=== PATIENT | male | born 1970 | race Caucasian/White ===

== ENCOUNTER 2018-06-07 14:31 | Emergency (ER) | payer BC ==
[~2018-06-07] VITALS: Ht 175.3 cm; Wt 77.3 kg
[~2018-06-07 14:31] MED LIST: CYCL10TA3 PO; NO HOME MEDICATIONS; PROZ10CA7 PO
[2018-06-07] MEDS ORDERED: CLEO300C2 PO (14:56)
[2018-06-07 15:20] LABS: BASO % 0.4 % (0.0-1.0); EOS # 0.1 10^3/uL (0.0-0.50); HEMATOCRIT 42.9 % (42.0-52.0); LYMPH # 2.3 10^3/uL (1.5-4.5); LYMPH % 23.2 % (24.0-44.0); MEAN CORPUSCULAR HEMOGLOBIN 33.3 pg (27.0-33.0); MEAN CORPUSCULAR VOLUME 95.3 fl (80.0-96.0); MONO # 0.7 10^3/uL (0.0-0.8); MONO % 6.4 % (0.0-5.0); NEUTROPHILS # 6.9 10^3/uL (1.8-7.7); NEUTROPHILS % 68.7 % (36.0-66.0); PLATELET COUNT, AUTOMATED 245 10^3/uL (150-450); WHITE BLOOD COUNT 10.1 10^3/uL (4.0-10.0)
[2018-06-07 15:39] LABS: BLOOD UREA NITROGEN 12 MG/DL (7-18); C REACTIVE PROTEIN QUANTITATIV < 0.30 MG/DL (0.00-0.30); CALCIUM LEVEL 8.8 MG/DL (8.5-10.1); CARBON DIOXIDE LEVEL 27 MEQ/L (21-32); CHLORIDE LEVEL 108 MEQ/L (98-107); GLOMERULAR FILTRATION RATE > 60.0 (>60); GLUCOSE, FASTING 87 MG/DL (70-100); POTASSIUM SERUM 4.1 MEQ/L (3.5-5.1); SODIUM LEVEL 140 MEQ/L (136-145)
[2018-06-07 16:01] LABS: ERYTHROCYTE SEDIMENTATION RATE 3 mm/hr (0-15)
--- NOTE | 2018-06-07 18:26 | REPVR ---
EXAM: CT Left Upper Extremity Without Contrast, Hand EXAM DATE/TIME: 06/07/2018 5:39 PM CLINICAL HISTORY: 48 years old, male; Injury or trauma; Injury history: Splinter injury left thumb; Initial encounter; Puncture; Hand; Additional info: Splinter injury left thumb, ? fb still in hand TECHNIQUE: CT of the Left upper extremity without intravenous contrast was performed. Exam focused on the hand. All CT scans at this facility use at least one of these dose optimization techniques: automated exposure control; mA and/or kV adjustment per patient size (includes targeted exams where dose is matched to clinical indication); or iterative reconstruction. Coronal and sagittal reformatted images were created and reviewed. COMPARISON: CR Hand, complete 06/12/2013 10:20 AM FINDINGS: There is no evidence of bony abnormality. There is no evidence of opaque foreign body within the soft tissues in the region of the thumb. There is soft tissue swelling subcutaneous region left thumb. IMPRESSION: Soft tissue swelling but no opaque foreign body identified. Electronically signed by: Con Noble On 06/07/2018 18:26:14 PM
[2018-06-07] MEDS ORDERED: CIPROFLOXACIN 500 MG TAB PO ONE (19:15)
[2018-06-07] MEDS ORDERED: CIPR-249 PO (19:27)
[2018-06-07 19:47] VITALS: BP 140/93
== END 2018-06-07 19:49 | disposition home or self-care (01) ==
LOC: M ED 14:31
DX: L03.114 Cellulitis of left upper limb (principal); F41.9 Anxiety disorder, unspecified; F32.9 Major depressive disorder, single episode, unspecified; Z79.899 Other long term (current) drug therapy

== ENCOUNTER 2018-09-10 08:31 | Day surgery (SDC) | payer BC ==
[~2018-09-10] VITALS: Ht 175.3 cm; Wt 81.4 kg
[~2018-09-10 08:31] MED LIST changes: +CIPR-249 PO; +CLEO300C2 PO; +IBUP-1022 PO; +LR 1,000 ML IV ONE
[2018-09-10] MEDS ORDERED: ONDANSETRON 4MG/2ML VIAL (J2405) As Ordered ONE (08:37)
[2018-09-10] MEDS ORDERED: PROPOFOL 500 MG/50 ML VIAL As Ordered ONE (08:37)
[2018-09-10] MEDS ORDERED: LIDOCAINE 2% INJ 100 MG/5 ML SDV (FOR ANES.) As Ordered ONE (08:37)
[2018-09-10] MEDS ORDERED: dexameTHASONE 4 MG/ML 1ML VIAL (J1100) As Ordered ONE (08:37)
[2018-09-10] MEDS ORDERED: fentaNYL 100 MCG/2 ML INJECTION (J3010) As Ordered ONE (08:38)
[2018-09-10] MEDS ORDERED: MIDAZOLAM INJ 2 MG/2 ML VIAL (J2250) As Ordered ONE (08:38)
[2018-09-10] MEDS ORDERED: BUPIVACAINE/EPIN 0.25% 30 ML VIAL As Ordered ONE (10:35)
[2018-09-10 12:25] VITALS: BP 116/85
[2018-09-10] MEDS ORDERED: CelecoXIB 400 MG CAP PO ONE (12:30)
[2018-09-10] MEDS ORDERED: LR 1,000 ML IV SCH ×2 (12:30)
[2018-09-10] MEDS ORDERED: METOCLOPRAMIDE INJ 10MG/2ML VIAL (J2765) IV PRN (12:30)
[2018-09-10] MEDS ORDERED: ONDANSETRON 4MG/2ML VIAL (J2405) IV PRN ×2 (12:30)
[2018-09-10] MEDS ORDERED: fentaNYL 100 MCG/2 ML INJECTION (J3010) IV PRN (12:30)
[2018-09-10] MEDS ORDERED: PERCOCET 5MG/325MG TAB PO PRN ×2 (12:30)
--- NOTE | 2018-09-10 14:22 | RO ---
DATE OF PROCEDURE: 09/10/2018 PREOPERATIVE DIAGNOSIS: Left thumb foreign body. POSTOPERATIVE DIAGNOSIS: Left thumb foreign body. PROCEDURE: Irrigation and debridement of left thumb. SURGEON: Dr. Fidencio Bill A P MANAGER: ANESTHESIA: Local MAC. ESTIMATED BLOOD LOSS: Less than 10 mL, replaced COMPLICATIONS: None. INDICATION: He had a treated lumbar splinter in the left thumb. MRI suggested that he had a foreign body. The patient elected to have that removed. Consent had been reviewed in detail with the patient, including maryjane discussion of pathology involved, procedure proposed, alternatives, including doing nothing and risks including but not limited to need for more surgery, inability to find the foreign body and other issues. The patient wanted to proceed. DESCRIPTION OF PROCEDURE: Identified in the holding area. Site and side verified. He was brought to the operating room where he was sedated. The area that had been marked on the thumb over the foreign body was anesthetized using 0.25% Marcaine with epinephrine approximately 1 mL. The incision was made with a 15 blade knife, developed down through skin and subcuticular tissues. There seemed to be a small amount of granulation tissue, which was removed. I did do cultures times two for anaerobic and aerobic. I did not appreciate a discernible foreign body. The incision was about 2 cm long and over the entire area in question. I explored subcutaneously towards the metacarpophalangeal joint and around the thumb. I felt additional exploration would not yield a foreign body and would likely increase his level of discomfort. At that point, I irrigated and closed the wound with interrupted nylon stitch. He was moved to the recovery room in good condition. For further details, please refer to medical record.
== END 2018-09-10 12:40 | disposition home or self-care (01) ==
LOC: M SDC 08:31
PROVIDERS: ATTEND Orthopaedic Surgery
DX: M60.242 Foreign body granuloma of soft tissue, not elsewhere classified, left hand (principal); F32.9 Major depressive disorder, single episode, unspecified; F17.210 Nicotine dependence, cigarettes, uncomplicated; Z18.33 Retained wood fragments
CPT/HCPCS: 10120; 87070; 87075; 87205; J1100; J2250; J2405; J3010

== ENCOUNTER → 2019-01-21 | Outpatient (REF) | payer BC ==
[~2019-01-21] MED LIST changes: -LR 1,000 ML IV ONE
[2019-01-21 12:10] LABS: PLATELET COUNT, AUTOMATED 261 10^3/uL (150-450)
[2019-01-21 12:21] LABS: INR 0.99; PROTHROMBIN TIME 12.8 SECONDS (11.8-14.0)
[2019-01-21 12:22] LABS: PARTIAL THROMBOPLASTIN TIME 29.6 SECONDS (25.0-38.4)
== END ==
LOC: M LABDRAW1 11:53
PROVIDERS: ATTEND Physician Assistant
DX: Z01.812 Encounter for preprocedural laboratory examination (principal); M50.322 Other cervical disc degeneration at C5-C6 level